=== PATIENT | male | born 1950 | race Caucasian/White ===

== ENCOUNTER 2017-02-03 06:53 | Inpatient (IN) | payer MEDICARE, OTHER ==
[2017-02-03] VITALS (20 sets, daily range): BP systolic 111–161; BP diastolic 63–82; PULSE 50–66; RESP 13–23; Ht 167.6 cm; Wt 87.0 kg
[~2017-02-03] VITALS: Ht 167.6 cm; Wt 87.0 kg
[~2017-02-03 06:53] MED LIST: AMLO-145 PO; ASPI-664 PO; ATOR20TA17 PO; CLOP75TA19 PO; FAMO-96 PO; FENO130C2 PO; ISOS30TA PO; LEVO75CA PO; METF500T3 PO; METO-448 PO; NITR0.4T6 SL; RES15 PO; SITA50TA2 PO; TAMS-14 PO; VIC PO
[2017-02-03] MEDS ORDERED: MAGNESIUM SULFATE 2 GM/50 ML 50 ML ONE (07:29)
[2017-02-03] MEDS ORDERED: ENOX40DI12 SQ (07:55)
[2017-02-03] MEDS ORDERED: VALS80TA29 PO (07:55)
[2017-02-03] MEDS ORDERED: ONDA2VIA31 IV (07:55)
[2017-02-03] MEDS ORDERED: PANT40SU PO (07:55)
[2017-02-03] MEDS ORDERED: ZOLP1.752 PO (07:55)
[2017-02-03] MEDS ORDERED: ADV50050 INHALATION (07:55)
[2017-02-03] MEDS ORDERED: MORP1DIS4 IV (07:55)
[2017-02-03] MEDS ORDERED: LINA5TAB PO (07:55)
[2017-02-03] MEDS ORDERED: MAG355OR14 PO (07:55)
[2017-02-03] MEDS ORDERED: HYDR-906 PO (07:55)
[2017-02-03] MEDS ORDERED: LIDOCAINE 1% (MDV) 20 ML INJ ONE (09:08)
[2017-02-03] MEDS ORDERED: IODIXANOL LOCM 100 ML BTL ONE (09:08)
[2017-02-03] MEDS ORDERED: FENTAnyl 50 MCG/ML VIAL ONE (09:09)
[2017-02-03] MEDS ORDERED: MIDAZOLAM 1 MG/ML 2 ML INJ ONE (09:09)
[2017-02-03] MEDS ORDERED: SOD CHLORIDE 0.9% 1,000 ML ONE (09:40)
[2017-02-03] MEDS ORDERED: SOD CHLORIDE 0.9% 1,000 ML IV SCH (10:12)
[2017-02-03] MEDS ORDERED: DEXTROSE 50% 50 ML SYRINGE IV PRN ×2 (10:30)
[2017-02-03] MEDS ORDERED: GLUCOSE GEL 15 GRAM TUBE PO PRN ×2 (10:30)
[2017-02-03] MEDS ORDERED: HOLD all METFORMIN and METFORMIN CONTAINING medications for 48 hours post procedure. Chec XX ONE (10:30)
[2017-02-03] MEDS ORDERED: morphine 4 MG/ML VIAL IV PRN (10:30)
[2017-02-03] MEDS ORDERED: NITROGLYCERIN (SL) 0.4 MG TAB SL SCH (10:30)
[2017-02-03] MEDS ORDERED: GLUCAGON 1 MG INJ IM PRN (10:30)
[2017-02-03] MEDS ORDERED: GLUCOSE GEL 15 GRAM TUBE BUCCAL PRN (10:30)
[2017-02-03] MEDS ORDERED: ONDANSETRON 4 MG INJ IV PRN (10:57)
[2017-02-03] MEDS: SALMETEROL/FLUTICASONE 500/50 INHA INH SCH (13:48)
[2017-02-03] MEDS: ASPIRIN (EC) 325 MG TAB PO SCH (13:51)
[2017-02-03] MEDS: AL HYDROX/MG HYDROX/SIMETH 30 ML CUP PO SCH ×2 (13:51→17:33)
[2017-02-03] MEDS: NIFEdipine (XL) 30 MG TAB PO SCH (13:51)
[2017-02-03 14:14] LABS: ADD SCAN DIFF NO
[2017-02-03 14:16] LABS: BASOPHILS % 0.3 % (0.0-2.0); EOSINOPHILS # 0.3 10^3/ul (0.0-0.5); HEMATOCRIT 39.6 % (42.0-52.0); HEMOGLOBIN 14.2 g/dl (14.0-18.0); LYMPHOCYTES # 1.8 10^3/ul (0.8-2.9); LYMPHOCYTES % 20.4 % (15.0-51.0); MEAN CORPUSCULAR HEMOGLOBIN 30.3 pg (29.0-33.0); MEAN CORPUSCULAR HGB CONC 35.9 g/dl (32.0-37.0); MEAN CORPUSCULAR VOLUME 84.6 fl (82.0-101.0); MEAN PLATELET VOLUME 8.6 fl (7.4-10.4); MONOCYTE # 0.7 10^3/ul (0.3-0.9); MONOCYTES % 8.1 % (0.0-11.0); NEUTROPHILS % 66.3 % (39.0-77.0); PLATELET COUNT 170 10^3/UL (140-415); RED BLOOD COUNT 4.68 10^6/ul (4.70-6.10); RED CELL DISTRIBUTION WIDTH 13.2 % (11.5-14.5)
[2017-02-03 14:43] LABS: CALCIUM 9.7 mg/dl (8.4-10.2); CREATININE 1.22 mg/dl (0.61-1.24)
--- NOTE | 2017-02-03 14:50 | CONS ---
Date/Time of Note Date/Time of Note DATE: 02/03/17 TIME: 14:43 Assessment/Plan Assessment/Plan Additional Assessment/Plan 66 year old male with 3 vessel CAD who will need CABG. I discussed with patient and family in great detail the benefits, risks and alternatives of surgery. The risks are but not limited to bleeding, infection, stroke, MT, renal and respiratory failure and . They understand and agree. Will plan on surgery Friday Consultation Date/Type/Reason Admit Date/Time Feb 03, 2017 at 13:23 Date of Consultation: Feb 03, 2017 Reason for Consultation CAD Referring Provider: APARNA ROMERO MD Hx of Present Illness 66 year old smoker admitted with chest pain at [facility] and transferred here with positive troponins. Cath today shows 3 vessel CAD. We are asked to see regarding CABG. He continues to smoke and has DM, HTN and history of throat cancer treated with ctx/rtx. Constitutional: No chills, No diaphoresis, No disoriented, No febrile, No improved, No no complaints, No other, No poor po, No requiring IVF, No requiring O2 Eyes: No discharge, No no complaints, No other, No pain, No redness, No visual change ENT: No bleeding, No congestion, No discharge, No dysphagia, No no complaints, No other, No pain, No sore throat Respiratory: No cough, No no complaints, No other, No pain, No pleuritic pain, No shortness of breath, No sputum, No wheezing Cardiovascular: chest pain Gastrointestinal: No blood, No constipation, No decreased appetite, No diarrhea , No flatus, No nausea, No no complaints, No other, No pain, No passing stool, No vomiting Genitourinary: No bleeding, No discharge, No dysuria, No flank pain, No hematuria, No no complaints, No other Musculoskeletal: No back pain, No bone/joint pain, No neck pain, No no complaints, No other, No restricted range of motion, No swelling Skin: No bruising, No erythema, No laceration, No no complaints, No other, No pruritis, No rash, No skin lesions Neurologic: No confusion, No dizziness, No focal-weakness, No headache, No no complaints, No other, No seizure, No syncope Endocrine: No dry skin, No no complaints, No other, No polydypsia, No polyuria , No temp intolerance Lymphatic: No adenopathy, No lymphadema, No no complaints, No other, No tender nodes Psychological: No anxiety, No confusion, No depression, No nl mood/affect, No no complaints, No other, No suicidal Past Medical History Medical History: angina, cancer, coronary artery disease, diabetes, high cholesterol, hypertension Past Surgical History Past Surgical Hx: angioplasty, bowel resection Family History Significant Family History: no pertinent family hx Social History Alcohol Use: occasionally Smoking Status: Current every day smoker Drug Use: none Exam/Review of Systems Vital Signs Vitals Vital Signs Date Time Temp Pulse Resp B/P Pulse Ox O2 Delivery O2 Flow Rate FiO2 02/03/17 12:57 62 02/03/17 12:45 98.2 18 161/72 97 Room Air Exam Constitutional: No alert, No distress, No frail, No non-verbal, No obese, No oriented, No other, No well developed Psych: No anxiety, No confusion, No depression, No nl mood/affect, No no complaints, No other, No suicidal Head: No atraumatic, No hematomas, No lacerations, No normocephalic, No other Eyes: No EOMI, No PERRL, No fundi, disc, No icteric, No nl conjunctiva, No nl lids, No nl sclera, No other ENMT: No intubated, No mucosa pink and moist, No nl external ears & nose, No nl lips & teeth, No nl nasal mucosa & septum, No other, No tympanic membranes Neck: No bruits, No jvd, No masses, No non-tender, No nuchal rigidity, No other , No supple, No thyromegaly Respiratory: No clear to auscultation, No congested cough, No crackles/rales, No diminished breath sounds, No intercostal retraction, No labored breathing, No normal air movement, No other, No respirations, No tactile fremitus, No wheezing Cardiovascular: No S3, No S4, No bruits, No diastolic murmur, No edema, No gallop, No irregular rhythm, No jugular venous distention (JVD), No murmurs/ extra sounds, No nl pulses, No other, No regular rate and rhythm, No rub, No systolic murmur Gastrointestinal: No ascites, No bowel sounds, No distended, No firm, No hepatomegaly, No mass, No nl liver, spleen, No non-tender, No other, No rebound or guarding, No soft, No splenomegaly, No surgical scars, No tender Genitourinary - Male: No CVA tenderness, No discharge, No nl penis, No nl scrotum, No other Musculoskeletal: No joint tenderness, No muscle tone, No muscle weakness, No nl extremities to inspection, No nl gait and stance, No other, No range of motion, No spine non-tender, No swelling Extremities: No calf tenderness, No clubbing, No cyanosis, No edema, No normal pulses, No other, No palpable cord, No pitting pedal edema, No tenderness Neurological: No CLEARING INSPECTOR II-XII intact, No DTR's symmetric, No confused, No focal weakness, No lethargic, No nl mental status, No nl speech, No nl strength, No numbness, No other, No reflexes, No unresponsive Skin: nl turgor, No rash or lesions Results Result Diagram: 02/03/17 1400 Results 24 hrs Laboratory Tests Test 02/03/17 14:00 White Blood Count 9.0 Red Blood Count 4.68 L Hemoglobin 14.2 Hematocrit 39.6 L Mean Corpuscular Volume 84.6 Mean Corpuscular Hemoglobin 30.3 Mean Corpuscular Hemoglobin Concent 35.9 Red Cell Distribution Width 13.2 Platelet Count 170 Mean Platelet Volume 8.6 Neutrophils % 66.3 Lymphocytes % 20.4 Monocytes % 8.1 Eosinophils % 3.0 Basophils % 0.3 Nucleated Red Blood Cells % 0.0 Neutrophils # 6.0 Lymphocytes # 1.8 Monocytes # 0.7 Eosinophils # 0.3 Basophils # 0.0 Nucleated Red Blood Cells # 0.0 Medications Medications Current Medications Aspirin (Ecotrin) 325 mg DAILY PO Last administered on 02/03/17t 13:51; Admin Dose 325 MG; Start 02/03/17 at 10:30 Atorvastatin Calcium (Lipitor) 40 mg HS PO ; Start 02/03/17 at 21:00 Enoxaparin Sodium (Lovenox) 40 mg DAILY SC ; Start 02/04/17 at 09:00 Linagliptin (Tradjenta) 5 mg DAILY PO ; Start 02/04/17 at 09:00 Al Hydrox/Mg Hydrox/Simethicone (Mag-Al Plus) 30 ml Q6 PO ; Start 02/03/17 at 12 :00 Metoprolol Tartrate (Lopressor) 50 mg BID PO ; Start 02/03/17 at 21:00 Nitroglycerin (Nitroglycerin (Sl Tab) 0.4 Mg) 0.4 tab PRN SL ; Start 02/03/17 at 10:30 Ondansetron HCl (Zofran Inj) 4 mg Q6H PRN IV NAUSEA AND/OR VOMITING; Start at 10:57; Status Future Hold Salmeterol Xinafoate/ Fluticasone (Advair 500/50 Diskus) 1 inh DAILY INH ; Start 02/03/17 at 10:30 Tamsulosin HCl (Flomax) 0.4 mg BID PO ; Start 02/03/17 at 21:00 Valsartan (Diovan) 80 mg DAILY PO ; Start 02/04/17 at 09:00 Levothyroxine Sodium (Synthroid) 112 mcg DAILY@0630 PO ; Start 02/04/17 at 06:30 Morphine Sulfate (morphine) 4 mg Q4H PRN IV severe pain; Start 02/03/17 at 10: 30 Pantoprazole (Protonix Tab) 40 mg DAILY@06 PO ; Start 02/04/17 at 06:00 Zolpidem Tartrate 5 mg 5 mg HS PO ; Start 02/03/17 at 21:00 Sodium Chloride (NS) 1,000 ml @ 75 mls/hr [id number] IV Last administered on 02/03t 10:57; Admin Dose 75 MLS/HR; Start 02/03/17 at 10:12; Stop 02/03/17 at 15: 11 Miscellaneous Information 1 ea NOTE XX ; Start 02/03/17 at 10:30 Glucose (Glutose) 15 gm Q15M PRN PO DECREASED GLUCOSE; Start 02/03/17 at 10:30 Glucose (Glutose) 22.5 gm Q15M PRN PO DECREASED GLUCOSE; Start 02/03/17 at 10: 30 Dextrose (D50w Syringe) 25 ml Q15M PRN IV DECREASED GLUCOSE; Start 02/03/17 at 10:30 Dextrose (D50w Syringe) 50 ml Q15M PRN IV DECREASED GLUCOSE; Start 02/03/17 at 10:30 Glucagon (Glucagen) 1 mg Q15M PRN IM DECREASED GLUCOSE; Start 02/03/17 at 10:30 Glucose (Glutose) 15 gm Q15M PRN BUCCAL DECREASED GLUCOSE; Start 02/03/17 at 10 :30 Miscellaneous Information (*Order Clarification Bulletin) PANTOPRAZOLE 40MG AC MEALS* PLE... Q8H XX Last administered on 02/03/17 13:22; Admin Dose 1 EA; Start 02/03/17 at 11:00 Nifedipine (Procardia Xl) 30 mg DAILY PO Last administered on 02/03/17 13:51; Admin Dose 30 MG; Start 02/03/17 at 14:00 CURTIS BOO MD Feb 03, 2017 14:49
[2017-02-03 14:56] LABS: POTASSIUM 5.2 mmol/L (3.5-5.1)
--- NOTE | 2017-02-03 16:50 | HP ---
DATE OF ADMISSION: 02/03/2017 CHIEF COMPLAINT: Chest pain, non-STEMI. HISTORY OF PRESENT ILLNESS: This is a 66-year-old male with a past medical history of coronary artery disease, previous history of cardiac catheterization with stent, history of hypertension, dyslipidemia, history of chronic kidney disease with unknown baseline creatinine, history of hypothyroidism and diabetes who presented to [facility] to undergo cardiac catheterization. The patient initially presented to [facility] where he came to the emergency room with complaints of chest pain, bilateral, pressure like. The patient was then transferred to [facility] to continue evaluation. The patient was seen by diabetes trainer, Dr. Ferris, with recommendation to undergo cardiac catheterization. The patient then underwent cardiac catheterization at [facility], where he was found to have multivessel disease with the recommendation for a CT surgery evaluation. The patient, following the procedure, was transferred to the recovery room. Upon my evaluation of the patient at this time, he is currently stable. He denies any fevers, chills, nausea or vomiting. He denies any shortness of breath. PAST MEDICAL HISTORY: As stated above, history of coronary artery disease, hypertension, dyslipidemia, diabetes, hypothyroidism, chronic kidney disease. PAST SURGICAL HISTORY: Hip replacement surgery, status post PCI. FAMILY HISTORY: Positive for coronary artery disease and diabetes. SOCIAL HISTORY: Positive for smoking. No alcohol use. MEDICATIONS: Reviewed and reconciled. REVIEW OF SYSTEMS: A 14-point review of systems was collected, pertinent positives stated in the HPI, otherwise negative. PHYSICAL EXAMINATION: VITAL SIGNS: Blood pressure 119/63, respirations 14, pulse 68, temperature 98.2. HEENT: Head is normocephalic. NECK: Supple. HEART: Regular rate. LUNGS: Diminished breath sounds at the bases. ABDOMEN: Soft, nontender to palpation. No rebound or guarding. EXTREMITIES: Negative for clubbing or cyanosis. No edema. DERMATOLOGIC: No rashes. MUSCULOSKELETAL: No joint effusion. NEUROLOGIC: No focal deficits. DATA: The patient's medications have been reviewed. Laboratory data is pending. ASSESSMENT AND PLAN: This is a 66-year-old male who presents with: 1. Non-ST elevation myocardial infarction. The patient is status post cardiac catheterization with multivessel disease. Plan is for patient to continue current medical management with aspirin, Plavix therapy and statin therapy. Will place a CT surgery evaluation with has been placed for possible CABG. I will follow up with Dr. Ferris, cardiology, for further recommendations. 2. History of chronic kidney disease, presumed to be secondary to diabetes and hypertension. Will plan at this point to check UA with micro , check urine lytes. Will continue with disease factor modification, monitoring renal function closely, monitor for any signs of contrast-associated nephropathy. 3. Hypertension. Continue current blood pressure regimen. 4. Diabetes. Accu-Cheks, insulin sliding scale. 5. Dyslipidemia. Continue statin therapy. 6. Hypothyroidism. Continue Synthroid. 7. Gastrointestinal/deep vein thrombosis prophylaxis. Continue PPI and heparin. Please note I spent up to 25 minutes face to face time with the patient. The patient is full code. Dictated By: Freddy Henderson DO /[email or web address]/ec /Document#: [id number]
[2017-02-03] MEDS: TAMSULOSIN (SR) 0.4 MG CAP PO SCH (21:08)
[2017-02-03] MEDS: METOPROLOL 50 MG TAB PO SCH (21:08)
[2017-02-03] MEDS: ZOLPIDEM 5 MG TAB PO SCH (21:08)
[2017-02-03] MEDS: ATORVASTATIN 20 MG TAB PO SCH (21:09)
[2017-02-03] MEDS: INSULIN ASPART [NOVOLOG] 3 ML PEN SC SCH (21:15)
[2017-02-04] VITALS (12 sets, daily range): BP systolic 94–138; BP diastolic 55–66; PULSE 54–75; RESP 17–19
[2017-02-04] MEDS: AL HYDROX/MG HYDROX/SIMETH 30 ML CUP PO SCH ×5 (01:30→23:54)
[2017-02-04] MEDS: ACCU-CHEK XX SCH (01:30)
[2017-02-04] MEDS ORDERED: ACCU-CHEK XX SCH (02:00)
[2017-02-04] MEDS: LEVOTHYROXINE 112 MCG TAB PO SCH (05:56)
[2017-02-04] MEDS: PANTOPRAZOLE (EC) 40 MG TAB PO SCH (05:56)
[2017-02-04 07:59] LABS: ADD SCAN DIFF NO
[2017-02-04 08:07] LABS: BASOPHIL # 0.1 10^3/ul (0.0-0.1); BASOPHILS % 0.6 % (0.0-2.0); EOSINOPHILS # 0.3 10^3/ul (0.0-0.5); EOSINOPHILS % 3.1 % (0.0-7.0); HEMOGLOBIN 14.7 g/dl (14.0-18.0); LYMPHOCYTES # 2.2 10^3/ul (0.8-2.9); LYMPHOCYTES % 20.4 % (15.0-51.0); MEAN CORPUSCULAR HEMOGLOBIN 30.1 pg (29.0-33.0); MEAN CORPUSCULAR VOLUME 85.9 fl (82.0-101.0); MONOCYTE # 0.9 10^3/ul (0.3-0.9); MONOCYTES % 8.3 % (0.0-11.0); NEUTROPHIL # 7.1 10^3/ul (1.6-7.5); NEUTROPHILS % 65.6 % (39.0-77.0); PLATELET COUNT 182 10^3/UL (140-415); RED BLOOD COUNT 4.89 10^6/ul (4.70-6.10); RED CELL DISTRIBUTION WIDTH 13.4 % (11.5-14.5); WHITE BLOOD COUNT 10.9 10^3/ul (4.8-10.8)
[2017-02-04 08:18] LABS: CALCIUM 9.5 mg/dl (8.4-10.2); CREATININE 1.45 mg/dl (0.61-1.24); PHOSPHORUS 4.4 mg/dl (2.5-4.9); POTASSIUM 4.7 mmol/L (3.5-5.1)
[2017-02-04] MEDS: INSULIN ASPART [NOVOLOG] 3 ML PEN SC SCH ×4 (08:36→22:10)
[2017-02-04] MEDS: ENOXAPARIN 40 MG/0.4 ML SYG SC SCH (08:37)
[2017-02-04] MEDS: METOPROLOL 50 MG TAB PO SCH ×2 (08:38→22:13)
[2017-02-04] MEDS: LINAGLIPTIN 5 MG TABLET PO SCH (08:38)
[2017-02-04] MEDS: VALSARTAN 80 MG TAB PO SCH (08:38)
[2017-02-04] MEDS: TAMSULOSIN (SR) 0.4 MG CAP PO SCH ×2 (08:38→22:11)
[2017-02-04] MEDS: NIFEdipine (XL) 30 MG TAB PO SCH (08:39)
[2017-02-04] MEDS: ASPIRIN (EC) 325 MG TAB PO SCH (08:39)
[2017-02-04] MEDS: SALMETEROL/FLUTICASONE 500/50 INHA INH SCH (08:39)
--- NOTE | 2017-02-04 11:40 | CONS ---
Date/Time of Note Date/Time of Note DATE: 02/04/17 TIME: 11:32 Assessment/Plan Assessment/Plan Chief Complaint/Hosp Course CAD: Cath showed a chronically occluded RCA stent, patent OM stent with significant disease after, and an ostial diag lesion. The LAD did not have significant disease and this is usually where the most benefit is obtained by CABG (TEIXEIRA-LAD). However though the OM lesion should be relatively easy, the diag intervention could jeopardize the LAD and the likelihood of success of a chronically occluded RCA stent is low. Therefore though not ideal without an LAD graft, I agree that his best chance at complete revascularization and symptomatic relief is with CABG. NSTEMI: cath as above DM HTN HL CKD: Cr slightly higher today, trend -ASA, lipitor -metoprolol -valsartan -CABG if pt agreeable. If not could try to intervene on OM and possibly diag. The RCA would be a dedicated staged PCI. Problems: Consultation Date/Type/Reason Admit Date/Time Feb 03, 2017 at 13:23 Date of Consultation: Feb 04, 2017 Type of Consultation: Cardiology Reason for Consultation NSTEMI s/p cath. Second opinion. Referring Provider: APARNA ROMERO MD Hx of Present Illness 66 yo M with a h/o CAD s/p PCI x 2 (2000 and 2008), CKD, DM, HTN, HL, who presented due to accelerated HTN to the systolic 220s and was found to have an NSTEMI (trop ~2). He had a cardiac cath with Dr. Romero 02/03/17 which showed a chronically occluded RCA stent, patent OM stent with significant disease after, and an ostial diag lesion. The LAD was free of significant disease. As such due to low likelihood of success fo complete revascularization, the pt was referred for CABG. He is evaluated by Dr. Green and accepted for surgery. The pt however is still hesitant. He denies chest pain. no SOB, orthopnea, PND, edema. per HPI Constitutional: No chills, No diaphoresis, No disoriented, No febrile, No improved, No no complaints, No other, No poor po, No requiring IVF, No requiring O2 Eyes: No discharge, No no complaints, No other, No pain, No redness, No visual change ENT: No bleeding, No congestion, No discharge, No dysphagia, No no complaints, No other, No pain, No sore throat Respiratory: No cough, No no complaints, No other, No pain, No pleuritic pain, No shortness of breath, No sputum, No wheezing Cardiovascular: chest pain Gastrointestinal: No blood, No constipation, No decreased appetite, No diarrhea , No flatus, No nausea, No no complaints, No other, No pain, No passing stool, No vomiting Genitourinary: No bleeding, No discharge, No dysuria, No flank pain, No hematuria, No no complaints, No other Musculoskeletal: No back pain, No bone/joint pain, No neck pain, No no complaints, No other, No restricted range of motion, No swelling Skin: No bruising, No erythema, No laceration, No no complaints, No other, No pruritis, No rash, No skin lesions Neurologic: No confusion, No dizziness, No focal-weakness, No headache, No no complaints, No other, No seizure, No syncope Endocrine: No dry skin, No no complaints, No other, No polydypsia, No polyuria , No temp intolerance Lymphatic: No adenopathy, No lymphadema, No no complaints, No other, No tender nodes Psychological: No anxiety, No confusion, No depression, No nl mood/affect, No no complaints, No other, No suicidal Past Medical History Medical History: angina, cancer, coronary artery disease, diabetes, high cholesterol, hypertension Past Surgical History Past Surgical Hx: angioplasty, bowel resection Social History Alcohol Use: occasionally Smoking Status: Current every day smoker Drug Use: none Exam/Review of Systems Vital Signs Vitals Vital Signs Date Time Temp Pulse Resp B/P Pulse Ox O2 Delivery O2 Flow Rate FiO2 02/04/17 08:09 98.1 59 18 113/60 95 02/03/17 21:20 Room Air Intake and Output 02/03/17 02/03/17 02/04/17 15:00 23:00 07:00 Intake Total 100 ml 360 ml 300 ml Balance 100 ml 360 ml 300 ml Exam Constitutional: alert, oriented Psych: nl mood/affect, no complaints Head: atraumatic, normocephalic Neck: No jvd Respiratory: clear to auscultation, No crackles/rales Cardiovascular: regular rate and rhythm, No edema Gastrointestinal: non-tender, soft Musculoskeletal: nl extremities to inspection Neurological: nl mental status, nl speech Results Result Diagram: 02/04/17 0706 02/04/17 0706 Results 24 hrs Laboratory Tests Test 02/03/17 14:00 02/03/17 21:11 02/04/17 01:29 02/04/17 07:06 White Blood Count 9.0 10.9 #H Red Blood Count 4.68 L 4.89 Hemoglobin 14.2 14.7 Hematocrit 39.6 L 42.0 Mean Corpuscular Volume 84.6 85.9 Mean Corpuscular Hemoglobin 30.3 30.1 Mean Corpuscular Hemoglobin Concent 35.9 35.0 Red Cell Distribution Width 13.2 13.4 Platelet Count 170 182 Mean Platelet Volume 8.6 9.0 Neutrophils % 66.3 65.6 Lymphocytes % 20.4 20.4 Monocytes % 8.1 8.3 Eosinophils % 3.0 3.1 Basophils % 0.3 0.6 Nucleated Red Blood Cells % 0.0 0.0 Neutrophils # 6.0 7.1 Lymphocytes # 1.8 2.2 Monocytes # 0.7 0.9 Eosinophils # 0.3 0.3 Basophils # 0.0 0.1 Nucleated Red Blood Cells # 0.0 0.0 Sodium Level 138 139 Potassium Level 5.2 H 4.7 Chloride Level 98 97 Carbon Dioxide Level 26 27 Anion Gap 19 H 20 H Blood Urea Nitrogen 26 H 30 H Creatinine 1.22 1.45 H Glucose Level 149 168 Calcium Level 9.7 9.5 Bedside Glucose 195 147 Phosphorus Level 4.4 Magnesium Level 2.0 Test 02/04/17 08:34 Bedside Glucose 168 Medications Medications Current Medications Aspirin (Ecotrin) 325 mg DAILY PO Last administered on 02/04/17 08:39; Admin Dose 325 MG; Start 02/03/17 at 10:30 Atorvastatin Calcium (Lipitor) 40 mg HS PO Last administered on 02/03/17 21:09 ; Admin Dose 40 MG; Start 02/03/17 at 21:00 Enoxaparin Sodium (Lovenox) 40 mg DAILY SC Last administered on 02/04/17 08:37 ; Admin Dose 40 MG; Start 02/04/17 at 09:00 Linagliptin (Tradjenta) 5 mg DAILY PO Last administered on 02/04/17 08:38; Admin Dose 5 MG; Start 02/04/17 at 09:00 Al Hydrox/Mg Hydrox/Simethicone (Mag-Al Plus) 30 ml Q6 PO Last administered on 02/04/17 05:56; Admin Dose 30 ML; Start 02/03/17 at 12:00 Metoprolol Tartrate (Lopressor) 50 mg BID PO Last administered on 02/03/17 21: 08; Admin Dose 50 MG; Start 02/03/17 at 21:00 Nitroglycerin (Nitroglycerin (Sl Tab) 0.4 Mg) 0.4 tab PRN SL ; Start 02/03/17 at 10:30 Ondansetron HCl (Zofran Inj) 4 mg Q6H PRN IV NAUSEA AND/OR VOMITING; Start at 10:57; Status Future Hold Salmeterol Xinafoate/ Fluticasone (Advair 500/50 Diskus) 1 inh DAILY INH ; Start 02/03/17 at 10:30 Tamsulosin HCl (Flomax) 0.4 mg BID PO Last administered on 02/04/17 08:38; Admin Dose 0.4 MG; Start 02/03/17 at 21:00 Valsartan (Diovan) 80 mg DAILY PO Last administered on 02/04/17 08:38; Admin Dose 80 MG; Start 02/04/17 at 09:00 Levothyroxine Sodium (Synthroid) 112 mcg DAILY@0630 PO Last administered on 05:56; Admin Dose 112 MCG; Start 02/04/17 at 06:30 Morphine Sulfate (morphine) 4 mg Q4H PRN IV severe pain; Start 02/03/17 at 10: 30 Pantoprazole (Protonix Tab) 40 mg DAILY@06 PO Last administered on 02/04/17 05 :56; Admin Dose 40 MG; Start 02/04/17 at 06:00 Zolpidem Tartrate (Ambien) 5 mg HS PO Last administered on 02/03/17 21:08; Admin Dose 5 MG; Start 02/03/17 at 21:00 Miscellaneous Information 1 ea NOTE XX ; Start 02/03/17 at 10:30 Glucose (Glutose) 15 gm Q15M PRN PO DECREASED GLUCOSE; Start 02/03/17 at 10:30 Glucose (Glutose) 22.5 gm Q15M PRN PO DECREASED GLUCOSE; Start 02/03/17 at 10: 30 Dextrose (D50w Syringe) 25 ml Q15M PRN IV DECREASED GLUCOSE; Start 02/03/17 at 10:30 Dextrose (D50w Syringe) 50 ml Q15M PRN IV DECREASED GLUCOSE; Start 02/03/17 at 10:30 Glucagon (Glucagen) 1 mg Q15M PRN IM DECREASED GLUCOSE; Start 02/03/17 at 10:30 Glucose (Glutose) 15 gm Q15M PRN BUCCAL DECREASED GLUCOSE; Start 02/03/17 at 10 :30 Miscellaneous Information (*Order Clarification Bulletin) PANTOPRAZOLE 40MG AC MEALS* PLE... Q8H XX Last administered on 02/03/17 19:01; Admin Dose 1 EA; Start 02/03/17 at 11:00 Nifedipine (Procardia Xl) 30 mg DAILY PO Last administered on 02/04/17 08:39; Admin Dose 30 MG; Start 02/03/17 at 14:00 Diagnostic Test (Pha) (Accu-Chek) 1 ea 02 XX ; Start 02/04/17 at 02:00 SHAN FITZGERALD Feb 04, 2017 11:40
--- NOTE | 2017-02-04 11:53 | PN ---
Date/Time of Note Date/Time of Note DATE: 02/04/17 TIME: 11:52 Assessment/Plan Lines/Catheters IV Catheter Type (from [facility]): Saline Lock Dillard in Place (from Nrs): No Assessment/Plan Chief Complaint/Hosp Course Agreeable to surgery tomorrow Problems: Exam/Review of Systems Vital Signs Vitals Vital Signs Date Time Temp Pulse Resp B/P Pulse Ox O2 Delivery O2 Flow Rate FiO2 02/04/17 08:09 98.1 59 18 113/60 95 02/03/17 21:20 Room Air Intake and Output 02/03/17 02/03/17 02/04/17 14:59 22:59 06:59 Intake Total 100 ml 360 ml 300 ml Balance 100 ml 360 ml 300 ml Results Result Diagram: 02/04/17 0706 02/04/17 0706 CURTIS BOO MD Feb 04, 2017 11:53
--- NOTE | 2017-02-04 21:27 | RADRPT ---
PROCEDURE: XR Chest. CLINICAL INDICATION: Preoperative. TECHNIQUE: Two views. Frontal and lateral. COMPARISON: No prior study is available for comparison. FINDINGS: The lungs are clear. The heart size is normal. There is calcification in the aorta consistent with atherosclerosis. There is no pleural effusion. There is no pneumothorax. IMPRESSION: 1. Atherosclerosis. 2. Otherwise normal chest radiograph. RPTAT: QQ .Helio Guardado MD, MD Date Time Electronically viewed and signed by .Helio Guardado MD, on 02/04/2017 21:27 .R/
[2017-02-04] MEDS: ZOLPIDEM 5 MG TAB PO SCH (22:10)
[2017-02-04] MEDS: ATORVASTATIN 20 MG TAB PO SCH (22:11)
[2017-02-05] VITALS (12 sets, daily range): BP systolic 97–114; BP diastolic 55–64; PULSE 54–69; RESP 15–19
[2017-02-05] MEDS: ACCU-CHEK XX SCH (02:00)
[2017-02-05] MEDS: LEVOTHYROXINE 112 MCG TAB PO SCH (05:48)
[2017-02-05] MEDS: PANTOPRAZOLE (EC) 40 MG TAB PO SCH (05:48)
[2017-02-05] MEDS: AL HYDROX/MG HYDROX/SIMETH 30 ML CUP PO SCH ×4 (05:48→23:57)
[2017-02-05 07:42] LABS: ADD SCAN DIFF NO
[2017-02-05 07:46] LABS: BASOPHILS % 0.3 % (0.0-2.0); EOSINOPHILS # 0.3 10^3/ul (0.0-0.5); EOSINOPHILS % 3.1 % (0.0-7.0); HEMATOCRIT 37.7 % (42.0-52.0); HEMOGLOBIN 13.5 g/dl (14.0-18.0); LYMPHOCYTES # 1.8 10^3/ul (0.8-2.9); LYMPHOCYTES % 18.9 % (15.0-51.0); MEAN CORPUSCULAR HEMOGLOBIN 30.7 pg (29.0-33.0); MEAN CORPUSCULAR HGB CONC 35.8 g/dl (32.0-37.0); MEAN CORPUSCULAR VOLUME 85.7 fl (82.0-101.0); MEAN PLATELET VOLUME 8.7 fl (7.4-10.4); MONOCYTE # 0.8 10^3/ul (0.3-0.9); MONOCYTES % 8.7 % (0.0-11.0); NEUTROPHIL # 6.4 10^3/ul (1.6-7.5); NEUTROPHILS % 67.6 % (39.0-77.0); PLATELET COUNT 175 10^3/UL (140-415); RED CELL DISTRIBUTION WIDTH 13.1 % (11.5-14.5); WHITE BLOOD COUNT 9.4 10^3/ul (4.8-10.8)
[2017-02-05 07:58] LABS: INR 0.86; PROTIME 11.7 Sec (12.2-14.2); PT RATIO 0.9
[2017-02-05 08:04] LABS: CALCIUM 9.4 mg/dl (8.4-10.2); CREATININE 1.82 mg/dl (0.61-1.24); MAGNESIUM 2.2 mg/dl (1.7-2.5); PHOSPHORUS 4.9 mg/dl (2.5-4.9)
[2017-02-05 08:22] LABS: ADD UMIC YES; UR ASCORBIC ACID NEGATIVE (NEGATIVE); UR BILIRUBIN (Dip) NEGATIVE (NEGATIVE); UR BLOOD (Dip) NEGATIVE (NEGATIVE); UR CLARITY CLEAR (CLEAR); UR COLOR YELLOW (YELLOW); UR GLUCOSE (Dip) NEGATIVE (NEGATIVE); UR KETONES (Dip) NEGATIVE (NEGATIVE); UR LEUKOCYTE ESTERASE (Dip) NEGATIVE Leu/ul (NEGATIVE); UR NITRITE (Dip) NEGATIVE (NEGATIVE); UR RBC 0 /HPF (0-5); UR TOTAL PROTEIN (Dip) 2+ mg/dl (NEGATIVE); UR UROBILINOGEN (Dip) NEGATIVE (NEGATIVE)
[2017-02-05] MEDS: SALMETEROL/FLUTICASONE 500/50 INHA INH SCH (08:35)
[2017-02-05] MEDS: VALSARTAN 80 MG TAB PO SCH (08:35)
[2017-02-05] MEDS: TAMSULOSIN (SR) 0.4 MG CAP PO SCH ×2 (08:35→21:30)
[2017-02-05] MEDS: ASPIRIN (EC) 325 MG TAB PO SCH (08:35)
[2017-02-05] MEDS: METOPROLOL 50 MG TAB PO SCH ×2 (08:36→21:00)
[2017-02-05] MEDS: NIFEdipine (XL) 30 MG TAB PO SCH (08:36)
[2017-02-05] MEDS: LINAGLIPTIN 5 MG TABLET PO SCH (08:36)
[2017-02-05] MEDS: INSULIN ASPART [NOVOLOG] 3 ML PEN SC SCH ×4 (08:38→21:00)
[2017-02-05] MEDS: ENOXAPARIN 40 MG/0.4 ML SYG SC SCH (08:38)
--- NOTE | 2017-02-05 08:53 | CONS ---
Date/Time of Note Date/Time of Note DATE: 02/05/17 TIME: 08:50 Assessment/Plan Assessment/Plan Chief Complaint/Hosp Course CAD: Cath 02/[address] Champagne showed a chronically occluded RCA stent, patent OM stent with significant disease before and after involving the ostial OM and mid Cx bifurcation, and an ostial diag lesion. The LAD did not have significant disease (~30%) and this is usually where the most benefit is obtained by CABG ( TEIXEIRA-LAD). However though the OM/Cx lesion should be relatively easy, the diag intervention could jeopardize the LAD and the likelihood of success of a chronically occluded RCA stent is low. Therefore though not ideal without an LAD graft, I agree that his best chance at complete revascularization and symptomatic relief is with CABG. Also he is already showing evidence of MIKE from his diagnostic cath and more contrast would be needed for PCI. He is currently seeking more opinions. NSTEMI: cath as above DM HTN HL CKD: Cr worse, likely from MIKE. -ASA, lipitor -metoprolol -valsartan -CABG if pt agreeable. If not could try to intervene on OM and possibly diag depedning on renal function. The RCA would be a dedicated staged PCI. Problems: Consultation Date/Type/Reason Admit Date/Time Feb 03, 2017 at 13:23 Initial Consult Date 02/04/17 Type of Consultation: Cardiology Referring Provider: APARNA CHAMPAGNE MD 24 HR Interval Summary Free Text/Dictation No o/n events. Pt is seeking 3rd and 4th opinions and for now does not want surgery. Exam/Review of Systems Vital Signs Vitals Vital Signs Date Time Temp Pulse Resp B/P Pulse Ox O2 Delivery O2 Flow Rate FiO2 02/05/17 08:36 54 02/05/17 07:48 98.3 19 103/56 96 02/03/17 21:20 Room Air Intake and Output 02/04/17 02/04/17 02/05/17 15:00 23:00 07:00 Intake Total 950 ml 900 ml Balance 950 ml 900 ml Exam Constitutional: alert, oriented Psych: no complaints Head: atraumatic, normocephalic Neck: No jvd Respiratory: clear to auscultation, No crackles/rales Cardiovascular: regular rate and rhythm, No edema Gastrointestinal: non-tender, soft Neurological: nl mental status, nl speech Results Result Diagram: 02/05/1718 02/05/17 0718 Results 24 hrs Laboratory Tests Test 02/04/17 11:35 02/04/17 17:29 02/04/17 18:10 02/04/17 21:56 Bedside Glucose 161 192 164 Urine Color YELLOW Urine Clarity CLEAR Urine pH 5.0 Urine Specific [place] 1.020 Urine Ketones NEGATIVE Urine Nitrite NEGATIVE Urine Bilirubin NEGATIVE Urine Urobilinogen NEGATIVE Urine Leukocyte Esterase NEGATIVE Urine Microscopic RBC 0 Urine Microscopic WBC 1 Urine Hemoglobin NEGATIVE Urine Glucose NEGATIVE Urine Total Protein 2+ H Test 02/05/17 07:18 02/05/17 07:25 02/05/17 08:34 White Blood Count 9.4 Red Blood Count 4.40 L Hemoglobin 13.5 L Hematocrit 37.7 L Mean Corpuscular Volume 85.7 Mean Corpuscular Hemoglobin 30.7 Mean Corpuscular Hemoglobin Concent 35.8 Red Cell Distribution Width 13.1 Platelet Count 175 Mean Platelet Volume 8.7 Neutrophils % 67.6 Lymphocytes % 18.9 Monocytes % 8.7 Eosinophils % 3.1 Basophils % 0.3 Nucleated Red Blood Cells % 0.0 Neutrophils # 6.4 Lymphocytes # 1.8 Monocytes # 0.8 Eosinophils # 0.3 Basophils # 0.0 Nucleated Red Blood Cells # 0.0 Sodium Level 140 Potassium Level 5.0 Chloride Level 97 Carbon Dioxide Level 28 Anion Gap 20 H Blood Urea Nitrogen 42 #H Creatinine 1.82 H Glucose Level 169 Calcium Level 9.4 Phosphorus Level 4.9 Magnesium Level 2.2 Prothrombin Time 11.7 L Prothrombin Time Ratio 0.9 INR International Normalized Ratio 0.86 Activated Partial Thromboplast Time 29.0 Bedside Glucose 189 Medications Medications Current Medications Aspirin (Ecotrin) 325 mg DAILY PO Last administered on 02/05/17 08:35; Admin Dose 325 MG; Start 02/03/17 at 10:30 Atorvastatin Calcium (Lipitor) 40 mg HS PO Last administered on 02/04/17 22:11 ; Admin Dose 40 MG; Start 02/03/17 at 21:00 Enoxaparin Sodium (Lovenox) 40 mg DAILY SC Last administered on 02/05/17 08:38 ; Admin Dose 40 MG; Start 02/04/17 at 09:00 Linagliptin (Tradjenta) 5 mg DAILY PO Last administered on 02/05/17 08:36; Admin Dose 5 MG; Start 02/04/17 at 09:00 Al Hydrox/Mg Hydrox/Simethicone (Mag-Al Plus) 30 ml Q6 PO Last administered on 02/05/17 05:48; Admin Dose 30 ML; Start 02/03/17 at 12:00 Metoprolol Tartrate (Lopressor) 50 mg BID PO Last administered on 02/05/17 08: 36; Admin Dose 50 MG; Start 02/03/17 at 21:00 Nitroglycerin (Nitroglycerin (Sl Tab) 0.4 Mg) 0.4 tab PRN SL ; Start 02/03/17 at 10:30 Ondansetron HCl (Zofran Inj) 4 mg Q6H PRN IV NAUSEA AND/OR VOMITING; Start at 10:57; Status Future Hold Salmeterol Xinafoate/ Fluticasone (Advair 500/50 Diskus) 1 inh DAILY INH Last administered on 02/05/17 08:35; Admin Dose 1 INH; Start 02/03/17 at 10:30 Tamsulosin HCl (Flomax) 0.4 mg BID PO Last administered on 02/05/17 08:35; Admin Dose 0.4 MG; Start 02/03/17 at 21:00 Valsartan (Diovan) 80 mg DAILY PO Last administered on 02/05/17 08:35; Admin Dose 80 MG; Start 02/04/17 at 09:00 Levothyroxine Sodium (Synthroid) 112 mcg DAILY@0630 PO Last administered on 05:48; Admin Dose 112 MCG; Start 02/04/17 at 06:30 Morphine Sulfate (morphine) 4 mg Q4H PRN IV severe pain; Start 02/03/17 at 10: 30 Pantoprazole (Protonix Tab) 40 mg DAILY@06 PO Last administered on 02/05/17 05 :48; Admin Dose 40 MG; Start 02/04/17 at 06:00 Zolpidem Tartrate (Ambien) 5 mg HS PO Last administered on 02/04/17 22:10; Admin Dose 5 MG; Start 02/03/17 at 21:00 Miscellaneous Information 1 ea NOTE XX ; Start 02/03/17 at 10:30 Glucose (Glutose) 15 gm Q15M PRN PO DECREASED GLUCOSE; Start 02/03/17 at 10:30 Glucose (Glutose) 22.5 gm Q15M PRN PO DECREASED GLUCOSE; Start 02/03/17 at 10: 30 Dextrose (D50w Syringe) 25 ml Q15M PRN IV DECREASED GLUCOSE; Start 02/03/17 at 10:30 Dextrose (D50w Syringe) 50 ml Q15M PRN IV DECREASED GLUCOSE; Start 02/03/17 at 10:30 Glucagon (Glucagen) 1 mg Q15M PRN IM DECREASED GLUCOSE; Start 02/03/17 at 10:30 Glucose (Glutose) 15 gm Q15M PRN BUCCAL DECREASED GLUCOSE; Start 02/03/17 at 10 :30 Miscellaneous Information (*Order Clarification Bulletin) PANTOPRAZOLE 40MG AC MEALS* PLE... Q8H XX Last administered on 02/03/17 19:01; Admin Dose 1 EA; Start 02/03/17 at 11:00 Nifedipine (Procardia Xl) 30 mg DAILY PO Last administered on 02/05/17 08:36; Admin Dose 30 MG; Start 02/03/17 at 14:00 Diagnostic Test (Pha) 1 ea 1 ea 02 XX ; Start 02/04/17 at 02:00 Cefazolin Sodium/ Dextrose 50 ml @ 100 mls/hr PRE-OP ONCE IVPB ; Start at 10:00; Stop 02/05/17 at 10:29 Insulin Human Regular 100 unit/ Sodium Chloride 100 ml @ 0 mls/hr Q0M IVPB ; Start 02/05/17 at 12:00; Stop 02/05/17 at 12:00 Norepinephrine 250 ml @ 0 mls/hr ONCE IV ; Start 02/05/17 at 12:00; Stop at 12:01 Epinephrine 4 mg/ Dextrose 250 ml @ 0 mls/hr Q0M IV ; Start 02/05/17 at 12:00; Stop 02/05/17 at 13:00 Phenylephrine HCl (Kimani-Syneph) 250 ml @ 0 mls/hr ONCE IV ; Start 02/05/17 at 12: 00; Stop 02/05/17 at 12:01 Aspirin 600 mg 600 mg ONCE TX ; Start 02/05/17 at 12:00; Stop 02/05/17 at 12:01 Heparin Sodium (Porcine) 63299 unit/Milrinone Lactate 10 mg/ Sodium Chloride 1, 011 ml @ 0 mls/hr ONCE SC ; Start 02/05/17 at 12:00; Stop 02/05/17 at 12:01 Milrinone Lactate/ Sodium Chloride (Primacor/NS) 52 ml @ 0 mls/hr ONCE IV ; Start 02/05/17 at 12:00; Stop 02/05/17 at 12:01 SHAN FITZGERALD Feb 05, 2017 08:53
[2017-02-05] MEDS ORDERED: CEFAZOLIN 2 GM/50 ML (PMX) 50 ML IVPB ONE (10:00)
[2017-02-05] MEDS ORDERED: INSULIN HUMAN REGULAR 100 UNIT in SOD CHLORIDE 0.9% 99 ML IVPB SCH (12:00)
[2017-02-05] MEDS ORDERED: EPINEPHrine 4 MG in DEXTROSE 5% 246 ML IV SCH (12:00)
[2017-02-05] MEDS ORDERED: NORepinephrine 8MG/250 ML (PMX 250 ML IV SCH (12:00)
[2017-02-05] MEDS ORDERED: ASPIRIN 600 MG SUPP PR SCH (12:00)
[2017-02-05] MEDS ORDERED: PHENYLephrine 20MG IN 250 ML 250 ML IV SCH (12:00)
[2017-02-05] MEDS ORDERED: HEPARIN (10000 UNITS/ML) 10,000 UNIT, MILRINONE LACTATE 10 MG in SOD CHLORIDE 0.9% 1,00... SC SCH (12:00)
[2017-02-05] MEDS ORDERED: MILRINONE LACTATE 2 MG in SOD CHLORIDE 0.9% 50 ML IV SCH (12:00)
[2017-02-05] MEDS ORDERED: INSULIN GLARGINE [LANtus] 3 ML PEN SC SCH (20:00)
[2017-02-05] MEDS: ZOLPIDEM 5 MG TAB PO SCH (21:30)
[2017-02-05] MEDS: ATORVASTATIN 20 MG TAB PO SCH (21:30)
[2017-02-06] VITALS (8 sets, daily range): BP systolic 92–128; BP diastolic 42–75; PULSE 59–66; RESP 15–18
[2017-02-06] MEDS: ACCU-CHEK XX SCH (02:00)
[2017-02-06] MEDS: LEVOTHYROXINE 112 MCG TAB PO SCH (06:10)
[2017-02-06] MEDS: AL HYDROX/MG HYDROX/SIMETH 30 ML CUP PO SCH ×2 (06:10→11:58)
[2017-02-06] MEDS: PANTOPRAZOLE (EC) 40 MG TAB PO SCH (06:10)
[2017-02-06 07:19] LABS: ADD SCAN DIFF NO
[2017-02-06 07:22] LABS: BASOPHIL # 0.1 10^3/ul (0.0-0.1); BASOPHILS % 0.5 % (0.0-2.0); EOSINOPHILS # 0.3 10^3/ul (0.0-0.5); EOSINOPHILS % 2.9 % (0.0-7.0); HEMATOCRIT 36.2 % (42.0-52.0); LYMPHOCYTES # 1.9 10^3/ul (0.8-2.9); LYMPHOCYTES % 21.1 % (15.0-51.0); MEAN CORPUSCULAR HEMOGLOBIN 30.6 pg (29.0-33.0); MEAN CORPUSCULAR HGB CONC 35.9 g/dl (32.0-37.0); MEAN CORPUSCULAR VOLUME 85.2 fl (82.0-101.0); MONOCYTE # 0.7 10^3/ul (0.3-0.9); MONOCYTES % 7.9 % (0.0-11.0); NEUTROPHILS % 66.1 % (39.0-77.0); PLATELET COUNT 174 10^3/UL (140-415); RED BLOOD COUNT 4.25 10^6/ul (4.70-6.10); RED CELL DISTRIBUTION WIDTH 12.9 % (11.5-14.5); WHITE BLOOD COUNT 9.1 10^3/ul (4.8-10.8)
[2017-02-06 07:58] LABS: CALCIUM 9.2 mg/dl (8.4-10.2); CREATININE 1.62 mg/dl (0.61-1.24); MAGNESIUM 2.3 mg/dl (1.7-2.5); PHOSPHORUS 4.6 mg/dl (2.5-4.9); POTASSIUM 4.9 mmol/L (3.5-5.1)
--- NOTE | 2017-02-06 07:59 | CONS ---
Date/Time of Note Date/Time of Note DATE: 02/06/17 TIME: 07:56 Assessment/Plan Assessment/Plan Chief Complaint/Hosp Course CAD: Cath 02/[address] Champagne showed a chronically occluded RCA stent, patent OM stent with significant disease before and after involving the ostial OM and mid Cx bifurcation, and an ostial diag lesion. The LAD did not have significant disease (~30%) and this is usually where the most benefit is obtained by CABG ( TEIXEIRA-LAD). However though the OM/Cx lesion should be relatively easy, the diag intervention could jeopardize the LAD and the likelihood of success of a chronically occluded RCA stent is low. Therefore though not ideal without an LAD graft, I agree that his best chance at complete revascularization and symptomatic relief is with CABG. Also he is already showing evidence of MIKE from his diagnostic cath and more contrast would be needed for PCI. He has decided not to have any interventions done here and will have PCI elsewhere. NSTEMI: cath as above DM HTN HL CKD: Cr worse, likely from MIKE. -pt wants to go home and have PCI elsewhere -add plavix on discharge -ASA, lipitor -metoprolol -valsartan Problems: Consultation Date/Type/Reason Admit Date/Time Feb 03, 2017 at 13:23 Initial Consult Date 02/04/17 Type of Consultation: Cardiology Referring Provider: APARNA CHAMPAGNE MD 24 HR Interval Summary Free Text/Dictation No o/n events. Pt wants to go home and will have PCI elsewhere. Exam/Review of Systems Vital Signs Vitals Vital Signs Date Time Temp Pulse Resp B/P Pulse Ox O2 Delivery O2 Flow Rate FiO2 02/06/17 04:08 66 02/06/17 04:00 97.5 15 92/42 95 02/03/17 21:20 Room Air Intake and Output 02/05/17 02/05/17 02/06/17 15:00 23:00 07:00 Intake Total 500 ml 600 ml Balance 500 ml 600 ml Exam Constitutional: alert, oriented Psych: nl mood/affect, no complaints Head: atraumatic, normocephalic Neck: No jvd Respiratory: clear to auscultation, No crackles/rales Cardiovascular: regular rate and rhythm, No edema Gastrointestinal: non-tender, soft Neurological: nl mental status, nl speech Results Result Diagram: 02/06/17 0706 02/05/17 0718 Results 24 hrs Laboratory Tests Test 02/05/17 08:34 02/05/17 11:31 02/05/17 17:34 02/05/17 21:27 Bedside Glucose 189 199 166 164 Test 02/06/17 07:06 White Blood Count 9.1 Red Blood Count 4.25 L Hemoglobin 13.0 L Hematocrit 36.2 L Mean Corpuscular Volume 85.2 Mean Corpuscular Hemoglobin 30.6 Mean Corpuscular Hemoglobin Concent 35.9 Red Cell Distribution Width 12.9 Platelet Count 174 Mean Platelet Volume 9.0 Neutrophils % 66.1 Lymphocytes % 21.1 Monocytes % 7.9 Eosinophils % 2.9 Basophils % 0.5 Nucleated Red Blood Cells % 0.0 Neutrophils # 6.0 Lymphocytes # 1.9 Monocytes # 0.7 Eosinophils # 0.3 Basophils # 0.1 Nucleated Red Blood Cells # 0.0 Medications Medications Current Medications Aspirin (Ecotrin) 325 mg DAILY PO Last administered on 02/05/17 08:35; Admin Dose 325 MG; Start 02/03/17 at 10:30 Atorvastatin Calcium (Lipitor) 40 mg HS PO Last administered on 02/05/17 21:30 ; Admin Dose 40 MG; Start 02/03/17 at 21:00 Enoxaparin Sodium (Lovenox) 40 mg DAILY SC Last administered on 02/05/17 08:38 ; Admin Dose 40 MG; Start 02/04/17 at 09:00 Linagliptin (Tradjenta) 5 mg DAILY PO Last administered on 02/05/17 08:36; Admin Dose 5 MG; Start 02/04/17 at 09:00 Al Hydrox/Mg Hydrox/Simethicone (Mag-Al Plus) 30 ml Q6 PO Last administered on 02/06/17 06:10; Admin Dose 30 ML; Start 02/03/17 at 12:00 Metoprolol Tartrate (Lopressor) 50 mg BID PO Last administered on 02/05/17 08: 36; Admin Dose 50 MG; Start 02/03/17 at 21:00 Nitroglycerin (Nitroglycerin (Sl Tab) 0.4 Mg) 0.4 tab PRN SL ; Start 02/03/17 at 10:30 Ondansetron HCl (Zofran Inj) 4 mg Q6H PRN IV NAUSEA AND/OR VOMITING; Start at 10:57; Status Future Hold Salmeterol Xinafoate/ Fluticasone (Advair 500/50 Diskus) 1 inh DAILY INH Last administered on 02/05/17 08:35; Admin Dose 1 INH; Start 02/03/17 at 10:30 Tamsulosin HCl (Flomax) 0.4 mg BID PO Last administered on 02/05/17 21:30; Admin Dose 0.4 MG; Start 02/03/17 at 21:00 Valsartan (Diovan) 80 mg DAILY PO Last administered on 02/05/17 08:35; Admin Dose 80 MG; Start 02/04/17 at 09:00; Status Future Hold Levothyroxine Sodium (Synthroid) 112 mcg DAILY@0630 PO Last administered on 06:10; Admin Dose 112 MCG; Start 02/04/17 at 06:30 Morphine Sulfate (morphine) 4 mg Q4H PRN IV severe pain; Start 02/03/17 at 10: 30 Pantoprazole (Protonix Tab) 40 mg DAILY@06 PO Last administered on 02/06/17 06 :10; Admin Dose 40 MG; Start 02/04/17 at 06:00 Zolpidem Tartrate (Ambien) 5 mg HS PO Last administered on 02/05/17 21:30; Admin Dose 5 MG; Start 02/03/17 at 21:00 Miscellaneous Information 1 ea NOTE XX ; Start 02/03/17 at 10:30 Glucose (Glutose) 15 gm Q15M PRN PO DECREASED GLUCOSE; Start 02/03/17 at 10:30 Glucose (Glutose) 22.5 gm Q15M PRN PO DECREASED GLUCOSE; Start 02/03/17 at 10: 30 Dextrose (D50w Syringe) 25 ml Q15M PRN IV DECREASED GLUCOSE; Start 02/03/17 at 10:30 Dextrose (D50w Syringe) 50 ml Q15M PRN IV DECREASED GLUCOSE; Start 02/03/17 at 10:30 Glucagon (Glucagen) 1 mg Q15M PRN IM DECREASED GLUCOSE; Start 02/03/17 at 10:30 Glucose (Glutose) 15 gm Q15M PRN BUCCAL DECREASED GLUCOSE; Start 02/03/17 at 10 :30 Nifedipine (Procardia Xl) 30 mg DAILY PO Last administered on 02/05/17 08:36; Admin Dose 30 MG; Start 02/03/17 at 14:00 Diagnostic Test (Pha) (Accu-Chek) 1 XX ; Start 02/04/17 at 02:00 Insulin Glargine (Lantus) 6 unit DAILY@20 SC Last administered on 02/05/17 21: 30; Admin Dose 6 UNIT; Start 02/05/17 at 20:00 SHAN FITZGERALD Feb 06, 2017 07:58
[2017-02-06] MEDS: SALMETEROL/FLUTICASONE 500/50 INHA INH SCH (08:15)
[2017-02-06] MEDS: TAMSULOSIN (SR) 0.4 MG CAP PO SCH (08:16)
[2017-02-06] MEDS: LINAGLIPTIN 5 MG TABLET PO SCH (08:16)
[2017-02-06] MEDS: ASPIRIN (EC) 325 MG TAB PO SCH (08:16)
[2017-02-06] MEDS: NIFEdipine (XL) 30 MG TAB PO SCH (08:17)
[2017-02-06] MEDS: METOPROLOL 50 MG TAB PO SCH (08:17)
[2017-02-06] MEDS: INSULIN ASPART [NOVOLOG] 3 ML PEN SC SCH ×2 (08:21→12:01)
[2017-02-06] MEDS: ENOXAPARIN 40 MG/0.4 ML SYG SC SCH (08:22)
[2017-02-06 15:59] LABS: MICROALBUMIN 74.3 mg/dL
--- NOTE | 2017-02-10 05:18 | DS ---
DATE OF ADMISSION: 02/03/2017 DATE OF DISCHARGE: 02/06/2017 HOSPITAL COURSE: This is a 66-year-old male with a past medical history of coronary artery disease, previous history of cardiac cath with stent placement, history of chronic kidney disease with unknown baseline creatinine, history of dyslipidemia, hypertension, hypothyroidism, diabetes, who presented to [facility] to undergo cardiac catheterization. The patient initially presented to [facility], where at that time he had episodes of chest pain. He was taken to [facility] and was ruled in for NSTEMI and was transferred to [facility] where he underwent cardiac catheterization. The patient's cardiac catheterization showed multivessel disease. The patient was then admitted to telemetry with evaluation by CT surgeon for possible CABG. The patient, however, refused CABG. The results of being followed by spray dry operator, Dr. Beltre, during the hospital course, and at this point the patient refused further intervention including PCI. The patient wishes to be sent home and will be followed up by his primary spray dry operator, Dr. Vo for further evaluation. During the hospital course, the patient did have an episode of nonoliguric acute kidney injury, etiology was likely due to hemodynamics from Diovan, low suspicion for contrast associated nephropathy. The patient's renal function has improved once Diovan was discontinued. The patient's other medical problems including diabetes and hypertension have been controlled during hospital course. Currently at this time, the patient is stable, in no acute distress. He will be discharged home where he will follow up with his primary care physician in 1 week's time. The patient will follow up next week for a lab check including a renal panel, and the patient will follow up with his primary spray dry operator in 1 week's time. At the time of discharge, the patient is stable, in no acute distress. FINAL DIAGNOSES: 1. Non-ST elevation myocardial infarction. 2. Nonoliguric acute kidney injury, improving. 3. Chronic kidney disease. 4. Hypertension. 5. Diabetes. 6. Dyslipidemia. 7. Hypothyroidism. 8. Mild anemia. FINAL MEDICATIONS: The patient will be discharged with medications of aspirin 81 mg daily, Plavix 75 mg daily, Lopressor 50 mg t.i.d., Procardia 30 mg q.daily, Lipitor 40 mg at bedtime. The patient will continue his home regimen of Flomax, Advair, QUIT DICTATING, DO NOT KNOW IF THE REPORT WAS FINISHED. Dictated By: Freddy Henderson DO /jennifer/mila /Document#: [id number]
--- NOTE | 2017-02-12 05:59 | CARRPT ---
DATE OF PROCEDURE: 02/03/2017 TYPE OF PROCEDURE: 1. Left cardiac catheterization. 2. Coronary arteriography. 3. Left internal mammary angiography not connected to the coronary circulation. PROCEDURE: Having obtained informed consent, the patient was brought to the cardiac catheterization laboratory and prepped and draped in usual fashion. 1 percent lidocaine was infiltrated in the right groin. Using a similar puncture at the femoral artery, a sheath was advanced followed by left and right Thompson coronary catheters selected for coronary angiography. This is then positioned into the left internal mammary artery for selective angiography. Upon completion of procedures, wires, sheaths and catheters removed. The sheath was to be removed in the prep and hold area. TOTAL CONTRAST: Less than 100 cc. ANESTHESIA: Versed 1 mg, fentanyl 25 mcg IV. FINDINGS: Please see hemodynamic data sheet. CORONARY ARTERIOGRAPHY: Left main is largely diseased. The LAD is a large vessel, extends across the apex. There is mild diffuse but no discrete lesion but there is a 90 percent plus lesion at the ostium of the 1st diagonal, which is moderate-to- large vessel. The circumflex has a patent stent. There is a [id number]-iz-[id number] obtuse marginal, which has an 80 percent to 90 percent lesion proximally. There is an 80 percent lesion 1/[address] vessel[address] The septal perforators and the circumflex give [id number] collaterals to the right coronary artery visualized on left coronary injection. The right coronary artery has an anterior takeoff. It is proximally diseased and then totally occluded and this occlusion extends through a previously placed stent. The right coronary artery is large and dominant and visualized primarily from the collaterals coming from left to right. Not noted above, the circumflex has a patent stent proximal to the obtuse marginal disease. IMPRESSION: [id number] myocardial infarction with troponin to 1.8. Patient is smoking and diabetic. He has a chronic total occlusion of the right in a dominant vessel. He has disease in the circumflex and disease in the diagonal. There is lower likelihood of procedural success with the chronic total occlusion. The obtuse marginal should be readily doable. The lesion of the diagonal would likely compromise flow in the left anterior descending. Given the 3-vessel disease and the fact that patient is diabetic with low likelihood of procedural success, along with diabetic renal insufficiency, we will refer the patient to surgery for the potential of 3-vessel coronary artery bypass graft using vein grafts. Patient's left internal mammary artery is widely patent, but it might be beneficial to defer this to a future surgery given that it would only be used to bypass the 1st diagonal. We will defer to Thoracic Surgery who will see the patient later. Dictated By: Aileen Champagne MD /[email or web address]/pee /Document#: [id number]
--- NOTE | 2017-02-12 06:27 | PN ---
DATE: 02/04/2017 SUBJECTIVE DATA: The patient was stable overnight. No fever or chills. No nausea or vomiting. The patient was seen by CT surgeon, Dr. Green and is recommending CABG, possibly scheduled for tomorrow. No other acute events noted. OBJECTIVE DATA: VITAL SIGNS: Blood pressure 113/60, respirations 18, pulse 60, temperature 98.1. HEENT:: Head is normocephalic. NECK: Supple. HEART: Regular rate. LUNGS: Show diminished breath sounds at the base. ABDOMEN: Soft. Nontender on palpation. No rebound or guarding. EXTREMITIES: Negative for clubbing or cyanosis. No edema. DERMATOLOGY: No rashes. MUSCULOSKELETAL: No joint effusion. NEUROLOGICAL: No focal deficits. MEDICATIONS:: The patient's medications have been reviewed. LABORATORY AND DIAGNOSTIC DATA: Sodium 139, potassium 4.7, chloride 97, BUN 30, creatinine 1.45. White count 10.9, hemoglobin 14.7, hematocrit 42.0. Platelet count is 182. ASSESSMENT AND PLAN: 1. Non-STEMI. The patient is status post cardiac catheterization with multi-vessel disease. Patient seen by Dr. Green and is pending possible CABG. Plan is to continue current medical management. Will follow up with bus girl, Dr. Champagne for further recommendations. 2. History of chronic kidney disease, presumably due to diabetes and hypertension. The patient's renal function shows creatinine approximately 1.4 mEq per liter. At this point, would check urinalysis with microanalysis. Will check urine lytes. Will continue Diovan at this time and monitor renal function closely. 3. Mineral bone disorder. Will monitor calcium and phosphorus levels. 4. Mild hyperkalemia, resolved. 5. Diabetes. Continue Accu-Chek and insulin sliding scale. 6. Hypertension. Continue current blood pressure regimen. 7. Dyslipidemia. Continue statin therapy. 8. Hypothyroidism on Synthroid. 9. GI and DVT prophylaxis. Continue PPI and heparin. 10. History of COPD. Continue Advair. 11. Benign prostatic hypertrophy. Continue Flomax. Dictated By: Freddy Henderson DO /jennifer/byron /Document#: [id number]
--- NOTE | 2017-02-12 14:12 | PN ---
DATE: SUBJECTIVE DATA: The patient at this point is refusing CABG. The patient wanted to continue to think about it with his family members. The patient is otherwise stable. No other acute events noted. No hemoptysis symptoms or hematochezia. OBJECTIVE DATA: VITAL SIGNS: Blood pressure is 103/56, respiration 19, pulse 86, temperature 98.3. HEENT: Head is normocephalic. NECK: Supple. CARDIAC: Heart is regular rate. RESPIRATORY: Lungs show diminished breath sounds at the base. ABDOMEN: Abdomen is soft, nontender to palpation. No rebound or guarding. EXTREMITIES: Extremities are negative for clubbing or cyanosis. No edema. DERMATOLOGIC: No rashes. MUSCULOSKELETAL: No joint effusion. NEUROLOGIC: No change in exam. MEDICATIONS: The patient's medications have been reviewed. LABORATORY AND DIAGNOSTIC DATA: Laboratory data reviewed showed a sodium of 140, potassium 5.0., BUN 42, creatinine 1.82. White count 9.4, hemoglobin 13.5, hematocrit 37.7, platelet count is 175. The patient's urine protein to creatinine ratio 500 mg per gram creatinine. ASSESSMENT AND PLAN: 1. Non-ST elevation myocardial infarction. The patient is status post a cardiac cath which showed multi-vessel disease. The patient is currently receiving medical management. At this point, the patient is pending possible cardiac cath, although he is refusing it at this time. We will continue to monitor and follow up with cardiology and proceed to surgery. 2. History of chronic kidney disease with acute kidney injury. Etiology of REX secondary to hemodynamics, likely . We will hold Diovan. The patient's urinalysis is otherwise . 3. Hypertension. Continue blood pressure regimen, holding Diovan REX. 4. Diabetes. Continue current regimen. 5. . 6. on Synthroid. 7. for prophylaxis. Continue PPI and heparin. 8. , Flomax. 9. COPD. Continue Advair. Dictated By: Freddy Henderson DO /jennifer/ /Document#: [id number]
== END 2017-02-06 13:50 | disposition home or self-care (01) | DRG 281 ==
LOC: CCL 06:53 → MS4 12:38
PROVIDERS: ADMIT Internal Medicine Interventional Cardiology; ATTEND Internal Medicine Interventional Cardiology
PROC: B3101ZZ Fluoroscopy of Thoracic Aorta using Low Osmolar Contrast (ICD-10-PCS; 2017-02-03)
PROC: 4A023N7 Measurement of Cardiac Sampling and Pressure, Left Heart, Percutaneous Approach (ICD-10-PCS; principal; 2017-02-03 09:00)
DX: I21.4 Non-ST elevation (NSTEMI) myocardial infarction (principal); N17.9 Acute kidney failure, unspecified; E11.22 Type 2 diabetes mellitus with diabetic chronic kidney disease; I25.82 Chronic total occlusion of coronary artery; E83.9 Disorder of mineral metabolism, unspecified; E87.5 Hyperkalemia; E78.5 Hyperlipidemia, unspecified; E03.9 Hypothyroidism, unspecified; I25.10 Atherosclerotic heart disease of native coronary artery without angina pectoris; I12.9 Hypertensive chronic kidney disease with stage 1 through stage 4 chronic kidney disease, or unspecified chronic kidney disease; N14.1 Nephropathy induced by other drugs, medicaments and biological substances; N40.0 Benign prostatic hyperplasia without lower urinary tract symptoms; N18.9 Chronic kidney disease, unspecified; J44.9 Chronic obstructive pulmonary disease, unspecified; F17.200 Nicotine dependence, unspecified, uncomplicated; Y92.239 Unspecified place in hospital as the place of occurrence of the external cause; T46.5X5A Adverse effect of other antihypertensive drugs, initial encounter; Z79.4 Long term (current) use of insulin; Z95.5 Presence of coronary angioplasty implant and graft; Z83.3 Family history of diabetes mellitus; Z82.49 Family history of ischemic heart disease and other diseases of the circulatory system; Z79.899 Other long term (current) drug therapy
CPT/HCPCS: 71020; 80048; 81001; 81003; 82043; 82962; 83735; 84100; 84155; 84300; 85025; 85610; 85730; 86850; 86900; 86901; 86920; 93454; C1769; C1887; C1894; J0171; J1644; J1650; J1815; J2250; J2260; J2370; J3010; J3475; J7030; J7040; J7070; Q9967